=== PATIENT | female | born 1960 | race African-American/Black ===

== ENCOUNTER 2017-11-04 20:12 | Emergency (ER) | payer SELFPAY ==
[~2017-11-04] VITALS: Ht 177.8 cm; Wt 91.0 kg
[2017-11-04] MEDS ORDERED: IBUPROFEN 600MG TABLET PO ONE (22:15)
[2017-11-04 22:19] VITALS: BP 124/46
== END 2017-11-04 23:48 | disposition home or self-care (01) ==
LOC: ER 20:12
DX: M79.641 Pain in right hand (principal); M25.531 Pain in right wrist; F17.200 Nicotine dependence, unspecified, uncomplicated; W18.39XA Other fall on same level, initial encounter; Y93.89 Activity, other specified; Y92.89 Other specified places as the place of occurrence of the external cause; Y99.8 Other external cause status; Z98.890 Other specified postprocedural states; Z88.4 Allergy status to anesthetic agent; Z88.8 Allergy status to other drugs, medicaments and biological substances
CPT/HCPCS: 29125; 73110; 73130; 99284